=== PATIENT | male | born 1990 ===

== ENCOUNTER 2017-06-09 05:44 | Emergency (ER) | payer OTHER ==
[2017-06-09 06:05] VITALS: BP 118/74; PULSE 82; RESP 16; TEMP 97.6; O2SAT 100
--- NOTE | 2017-06-09 06:18 | ED PDOC ---
HPI: CCC, URI, Sore Throat Time Seen by Provider: 06/09/17 06:00 Chief Complaint (Nursing): ENT Problem Chief Complaint (Provider): Throat pain History Per: Patient History/Exam Limitations: no limitations Have you had recent travel within the past 21 days to any of the following countries: [place], [place], [place] or [place]?: No Onset/Duration Of Symptoms: Days Current Symptoms Are (Timing): Still Present Location Of Pain: Throat Sick Contacts (Context): None Associated Symptoms: Fever, Sore Throat. denies: Nausea, Vomiting Additional History Per: Patient Additional Complaint(s): 27yo male, presents to ED with complaints of throat pain and right sided throat swelling for the past couple days. Patient states he had a fever but which has now resolved. Patient states he has pain upon swallowing and feels a burning sensation behind his tongue. Patient denies any cough, nausea, vomiting. He reports taking Mucinex for his symptoms with minimal relief. He has no other medical complaints. PCP: None Past Medical History Reviewed: Historical Data, Nursing Documentation, Vital Signs Vital Signs: Last Vital Signs Temp 97.6 F 06/09/17 06:02 Pulse 82 06/09/17 06:02 Resp 16 06/09/17 06:02 BP 118/74 06/09/17 06:02 Pulse Ox 100 06/09/17 08:20 - Medical History PMH: No Chronic Diseases - Surgical History Surgical History: No Surg Hx - Family History Family History: States: No Known Family Hx - Social History Current smoker - smoking cessation education provided: No Alcohol: None Drugs: Denies - Home Medications Home Medications: Ambulatory Orders Medication Instructions Recorded Ibuprofen [Motrin] 600 mg PO TID 7 Days tab 06/09/17 - Allergies Allergies/Adverse Reactions: Allergies Allergy/AdvReac Type Severity Reaction Status Date / Time No Known Allergies Allergy Verified 06/09/17 06:05 Review of Systems ROS Statement: Except As Marked, All Systems Reviewed And Found Negative Constitutional: Positive for: Fever ENT: Positive for: Throat Pain, Throat Swelling Respiratory: Negative for: Cough Gastrointestinal: Negative for: Nausea, Vomiting Physical Exam - Reviewed Nursing Documentation Reviewed: Yes Vital Signs Reviewed: Yes - Physical Exam Appears: Positive for: Non-toxic, No Acute Distress Head Exam: Positive for: ATRAUMATIC, NORMAL INSPECTION, NORMOCEPHALIC Skin: Positive for: Normal Color Eye Exam: Positive for: EOMI, PERRL ENT: Positive for: Pharyngeal Erythema, Tonsillar Swelling. Negative for: Tonsillar Exudate Neck: Positive for: Supple Cardiovascular/Chest: Positive for: Regular Rate, Rhythm Respiratory: Positive for: Normal Breath Sounds. Negative for: Wheezing, Respiratory Distress Gastrointestinal/Abdominal: Positive for: Soft. Negative for: Tenderness Extremity: Positive for: Normal ROM Lymphatic: Positive for: Adenopathy (right anterior cervical) Neurologic/Psych: Positive for: Alert, Oriented - ECG O2 Sat by Pulse Oximetry: 100 (RA) Pulse Ox Interpretation: Normal Medical Decision Making Medical Decision Making: Impression: Pharyngitis noted pt has lymphadenopathy Plan: -- Rapid strep -- Toradol 60mg IM Reassess Scribe Attestation: Documented by Dara Rodríguez acting as a scribe for Brendan Alexandra MD. Provider Attestation: All medical record entries made by the Scribe were at my direction and personally dictated by me. I have reviewed the chart and agree that the record accurately reflects my personal performance of the history, physical exam, medical decision making, and the department course for this patient. I have also personally directed, reviewed, and agree with the discharge instructions and disposition. Disposition - Clinical Impression Clinical Impression: URI (upper respiratory infection) - Patient ED Disposition Is Patient to be Admitted: Transfer of Care - Disposition Referrals: [facility] [Outside] - 06/10/17 Disposition: Transfer of Care Disposition Time: 15:00 Condition: STABLE Additional Instructions: Return if not better in 3 days. Prescriptions: Ibuprofen [Motrin] 600 mg PO TID 7 Days tab Instructions: Upper Respiratory Infection (ED) Forms: [employer] ([place]), [facility] ED School/Work Excuse
--- NOTE | 2017-06-09 07:04 | ED PDOC ---
- Laboratory Results Interpretation Of Abn Labs: strep neg - ECG O2 Sat by Pulse Oximetry: 100 (RA) Pulse Ox Interpretation: Normal - Progress ED Course And Treament: 818: Stable. AAOx3. Pain free. Tolerated PO. Fu with pcp. Medical Decision Making Medical Decision Makin:00 Patient signed over from Brendan Alexandra MD to me, Lucho Lord MD pending strep test Scribe Attestation: Documented by Darline Gilliland, acting as a scribe for Lucho Lord MD. Provider Scribe Attestation: All medical record entries made by the Scribe were at my direction and personally dictated by me. I have reviewed the chart and agree that the record accurately reflects my personal performance of the history, physical exam, medical decision making, and the department course for this patient. I have also personally directed, reviewed, and agree with the discharge instructions and disposition. Disposition - Clinical Impression Clinical Impression: URI (upper respiratory infection) - POA Present On Arrival: None - Disposition Referrals: [facility] [Outside] - 06/10/17 Disposition: Routine/Home Disposition Time: 08:19 Condition: STABLE Additional Instructions: Return if not better in 3 days. Prescriptions: Ibuprofen [Motrin] 600 mg PO TID 7 Days tab Instructions: Upper Respiratory Infection (ED) Forms: [employer] ([place]ian), [facility] ED School/Work Excuse
== END 2017-06-09 08:38 | disposition home or self-care (01) ==
LOC: H.ER 05:44
DX: J06.9 Acute upper respiratory infection, unspecified (principal)
CPT/HCPCS: 87070; 87430; 96372; 99283; J1885